=== PATIENT | female | born 1975 | race Caucasian/White ===

== ENCOUNTER 2022-09-03 18:07 | Emergency (ER) | payer OTHER, BC ==
--- OUTSIDE RECORDS SUMMARY | 2022-09-03 18:18 | XMS REPORT | Continuity of Care Document ---
:1975 Author Organization [facility] t Address [address] [place] [address] Care Team Providers Name Role Phone Fabián JIMENEZ, Sushma Primary Care Physician Viki Upton Attending Clinician MARTIN CARTER Attending Clinician Unavailable Yi JIMENEZ, Ramona Yarbrough Attending Clinician Sushma Lockwood MD Attending Clinician Payers Payer Name Policy Type Policy Number Effective Date Expiration Date S ource Problems Condition Condition Condition Status Onset Resolution Last Treating Co mments Source Name Details Category Date Date Treatment Clinician Date Depression Depression Disease Active 2020-11 M ethodi with with 2-14 st anxiety anxiety 00:00: Hospita 00 l Fibroadeno Fibroadeno Disease Active 2020-11 Overview : Methodi ma of ma of 2-[address] right right 00:00: g of this Hospita breast breast 00 note l might be different from the original. 11/2019 BX HLD HLD Disease Active 2020-11 Methodi (hyperlipi (hyperlipi 2-14 st demia) demia) 00:00: Hospita 00 l Gastrointe Gastrointe Disease Active 2020-11 M ethodi stinal stinal 2-14 st food food 00:00: Hospita sensitivit sensitivit 00 l y y IBS IBS Disease Active 2020-11 Method[facility] (irritable (irritable 2-14 st bowel bowel 00:00: Hospita syndrome) syndrome) 00 l Intermitte Intermitte Disease Active 2021-1 Overview : Methodi nt nt 2-[address] diarrhea diarrhea 00:00: g of this Hos viv 00 note l might be different from the original. After cholecyst ectomy Migraine Migraine Disease Active Overview: Me thodi 06-[address] 00:00: g of this Hospita 00 note l might be different from the original. c/o migraine headache , Takes Topiramat e Has occasiona l headaches despite taking topamax regularly Symptoms worsen When environme nt is noisy and she is stressedL ast Assessmen t & Plan: Formattin g of this note might be different from the original. Headaches are worsening . Recommend to see Neurology for worsening HeadahesA dvised to keep a headache diary.Cou nseled regarding lifestyle modificat ions.Medi cation changes per orders.Us e Migraine Excedrin at headache onset Allergies, Adverse Reactions, Alerts This patient has no known allergies or adverse reactions. Family History Family Member Diagnosis Comments Start Date Stop Date Source Natural brother No Known Problems [facility] Natural father Depression [facility] Maternal grandfather Stroke Meth [facility] mother [facility] Social History Social Habit Start Date Stop Date Quantity Comments Source Alcohol intake 2022-07-27 2022-07-27 Current Taoism 00:00:00 00:00:00 non-drinker of Hospital alcohol (finding) Tobacco use and 2022-05-17 2022-05-17 Smokeless tobacco [facility] exposure 00:00:00 00:00:00 non-user Hospital Sex Ass[birth year] At [birth year] Taoism 00:00:00 00:00:00 Hospital Smoking Status Start Date Stop Date Source Never smoked tobacco [facility] Medications Ordered Filled Start Stop Current Ordering Indication Dosage Frequency Signature Comments Components Source Medication Medication Date Date Medication? Clinician (SIG) Name Name NON Yes Otto [facility] FORMULARY 6-[address] 09:52: Beta Hospita 32 PlusDigest l Forte 2 dailyAshwa gandha complex 4 dailyCatap elissa G 4 dailyBio DK Mulsion 5 dailyBio C Plus 1000 3 dailyCatap elissa ACD 9 daily venlafaxine Yes [id number] 37.5mg QD Take 1 [facility] (EFFEXOR) 6-[address] 37.5 MG 00:00: (37.5 mg Hospit a tablet 00 total) by l mouth daily for 90 days. venlafaxine 2020-11- No [id number] 37.5mg QD Take 1 [facility] (EFFEXOR) 2-01 05-[address] 37.5 MG 00:00: 00:00 (37.5 mg Hospi ta tablet 00 :00 total) by l mouth daily for 90 days. aerosol 2020- No [id number] 2{each} Q.5D Inhale 2 [facility] holding 01-[address] chamber 00:00: 00:00 (two) Hospita (FLEXICHAMB 00 :00 times a l ER) spacer day. AIMOVIG 2018-11- No INJECT [facility] AUTOINJECTO 12-[address] R 140 mg/mL 00:00: 00:00 SUBCUTANEO Hospita syringe 00 :00 USLY EVERY l MONTH topiramate Yes [id number] TAKE 1 M ethodi (TOPAMAX) 5-[address] 100 MG 00:00: MOUTH Hospita tablet 00 EVERY l MORNING AND TAKE 2 TABLETS IN THE EVENING venlafaxine 2020- No [id number] 37.5mg Q.5D Take 1 [facility] (EFFEXOR) -15 11- tablet st 37.5 MG 00:00: 00:00 (37.5 mg Hospi ta tablet 00 :00 total) by l mouth 2 (two) times a day for 90 days. Immunizations Ordered Immunization Filled Immunization Date Status Commen ts Source Name Name LOGIC DEVICES COVID-19 MRNA 2021-11-19 Completed Meth odist VACCINATION 00:00:00 [facility] FLUCELVAX QUAD PF 2021-10-[address] 00:00:00 [facility] PFIZER COVID-19 MRNA 2021-02-22 Completed Meth odist VACCINATION 00:00:00 Hospital PFIZER COVID-19 MRNA 2021-01-31 Completed Meth odist VACCINATION 00:00:00 Hospital Influenza, 2019-08-18 Completed Taoism Unspecified 00:00:00 Hospital Influenza Trivalent 2017-09-08 Completed Metho dist 00:00:00 Hospital FLUZONE QUAD PF 2016-09-07 Completed Taoism 00:00:00 Hospital FLUZONE QUAD 2016-09-07 Completed [facility]ism 00:00:00 Hospital Influenza, 2015-08-26 Completed Taoism Unspecified 00:00:00 Hospital Influenza, 2014-09-03 Completed Taoism Unspecified 00:00:00 Hospital Influenza Trivalent 2011-06-18 Completed Metho dist 00:00:00 Hospital Vital Signs Vital Name Observation Time Observation Value Comments Source Body temperature 2022-05-01 14:50:[address] [facility] Body height 2022-05-01 14:50:00 165.1 cm [facility] Body weight 2022-05-01 14:50:00 70.308 kg [facility] BMI 2022-05-01 14:50:00 25.79 kg/m2 [facility] Systolic blood 2021-10-31 21:14:00 113 mm[Hg] [facility] pressure Diastolic blood 2021-10-31 21:14:00 70 mm[Hg] [facility] pressure Heart rate 2021-10-31 21:14:00 67 /min [facility] Respiratory rate 2021-10-31 21:14:00 16 /min [facility] Oxygen saturation in 2021-10-31 21:14:00 96 /min [facility] Arterial blood by Pulse oximetry Procedures Procedure Date / Time Performing Clinician Source Performed XR ANKLE 3+ VW LEFT 2022-06-21 13:56:01 Viki Sevilla [facility] XR ANKLE 3+ VW LEFT 2022-05-17 14:17:48 Martin Carter [facility] MAMMO BREAST SCREEN 2022-05-17 13:57:49 [facility] TOMOSYNTHESIS BILATERAL XR ANKLE 3+ VW LEFT 2022-05-04 16:27:04 [facility] Plan of Care Planned Activity Planned Date Details Comments Source Future Scheduled 2022-08-15 COVID-19 VACCINE (4 - [facility] Test 09:45:02 Booster for Pfizer series) [code = COVID-19 VACCINE (4 - Booster for Pfizer series)] Future Scheduled 2022-08-15 INFLUENZA VACCINE Method [facility] Test 09:45:02 [code = INFLUENZA VACCINE] Future Scheduled 2022-08-15 Screening for [facility] Test 09:45:02 malignant neoplasm of cervix (procedure) [code = 955169120] Future Scheduled 2022-08-15 BREAST CANCER [facility] Test 09:45:02 SCREENING [code = BREAST CANCER SCREENING] Future Scheduled 2022-08-15 HEPATITIS B VACCINES Met [facility] Test 09:45:02 (1 of 3 - 3-dose series) [code = HEPATITIS B VACCINES (1 of 3 - 3-dose series)] Future Scheduled 2022-08-15 Hepatitis C screening [facility] Test 09:45:02 (procedure) [code = 143535927] Future Scheduled 2022-08-15 COLONOSCOPY SCREENING [facility] Test 09:45:02 [code = COLONOSCOPY SCREENING] Encounters Start End Encounter Admission Attending Care Care Encounter Source Date/Time Date/Time Type Type Clinicians Facility Department ID 2022-07-26 2022-07-26 Office Roel 1.2.840.1 [id number] Methodi 15:00:00 15:24:45 Visit Viki 08585.1.1 510 s t 3.430.2.7 Hospit a .3.750378 l .8 2022-07-26 2022-07-26 Outpatient [facility] [id number] [place] 00:00:00 00:00:[address] 2022-07-26 2022-07-26 Outpatient SCOUT [facility] [id number] [place] 00:00:00 00:00:00 MARTIN [address] 2022-07-26 2022-07-26 Travel 1.2.840.1 1.2.786.614 [id number] Methodi 00:00:00 00:00:[address] 3.430.2.7 0.2.7.3.698 Ho spita .3.024472 084.8 l .8 2022-06-21 2022-06-21 Office Roel 1.2.840.1 [id number] Methodi 09:00:00 09:35:36 Visit Viki 81812.1.1 581 s t 3.430.2.7 Hospit a .3.017528 l .8 2022-06-21 2022-06-21 Outpatient [facility] [id number] [place] 00:00:00 00:00:[address] 2022-06-21 2022-06-21 Travel 1.2.840.1 1.2.933.521 [id number] Methodi 00:00:00 00:00:[address] 3.430.2.7 0.2.7.3.698 Ho spita .3.671318 084.8 l .8 2022-06-21 2022-06-21 Outpatient [facility] [id number] [place] 00:00:00 00:00:[address] 2022-05-20 2022-05-20 [facility], 1.2.840.1 [id number] [id number] Methodi 16:28:06 23:59:00 Encounter Ramona 42668.1.[address] [place] 3.430.2.7 Hospit a .3.144534 l .8 2022-05-20 2022-05-20 [facility], 1.2.840.1 [id number] 2099 [id number] Methodi 16:27:55 16:27:55 Encounter Ramona 58578.1.[address] [place] 3.430.2.7 Hospit a .3.608872 l .8 2022-05-20 2022-05-20 [facility], 1.2.840.1 [id number] 2099 [id number] Methodi 16:27:16 16:27:16 Encounter Ramona 85664.1.[address] [facility] 3.430.2.7 Hospit a .3.913177 l .8 2022-05-20 2022-05-20 [facility], 1.2.840.1 [id number] 2099 [id number] Methodi 16:27:15 16:27:15 Encounter Ramona [address]684.1.[address] [place] 3.430.2.7 Hospit a .3.119616 l .8 2022-05-20 2022-05-20 [facility], 1.2.840.1 [id number] 2099 [id number] Methodi 16:26:16 16:26:16 Encounter Ramona [address]1952.1.[address] [place] 3.430.2.7 Hospit a .3.176710 l .8 2022-05-20 2022-05-20 Outpatient YI, [facility] [id number] [place] 00:00:00 00:00:00 RAMONA [address] 2022-05-20 2022-05-20 Orders Yi, 1.2.840.1 [id number] Methodi 00:00:00 00:00:00 Only Ramona 11616.1.[address] [place] 3.430.2.7 Hospit a .3.338325 l .8 2022-05-20 2022-05-20 Outpatient YI, [facility] [id number] [place] 00:00:00 00:00:00 RAMONA 301 Method i 2022-05-20 2022-05-20 Outpatient YI [facility] [id number] [place] 00:00:00 00:00:00 RAMONA [address] 2022-05-20 2022-05-20 Outpatient YI, [facility] [id number] [place] 00:00:00 00:00:00 RAMONA 307 Method i 2022-05-20 2022-05-20 Outpatient YI, [facility] [id number] [place] 00:00:00 00:00:00 RAMONA 315 Method i 2022-05-17 2022-05-17 Office Sushma Lockwood 1.2.840.1 [id number] Methodi 10:30:00 13:05:30 Visit Martin Carter 27906.1.[address] 3.430.2.7 Hospit a .3.473954 l .8 2022-05-17 2022-05-17 Outpatient [facility] [id number] [place] 00:00:00 00:00:00 SUSHMA [address] 2022-05-17 2022-05-17 Outpatient [facility] [id number] [place] 00:00:00 00:00:00 BRANKA [address] 2022-05-17 2022-05-17 Outpatient SCOUT, [facility] [id number] [place] 00:00:00 00:00:00 MARTIN [address]ujano [facility] 2022-05-17 2022-05-17 Travel 1.2.840.1 1.2.083.224 [id number] [id number] Methodi 00:00:00 00:00:[address] 3.430.2.7 0.2.7.3.698 Ho spita .3.350521 084.8 l .8 2022-05-04 2022-05-04 Outpatient [facility], [facility] [id number] [place] 00:00:00 00:00:[address] SUSHMA [address] 2022-05-02 2022-05-02 Travel 1.2.840.1 1.2.517.930 [id number] Methodi 00:00:00 00:00:[address] 3.430.2.7 0.2.7.3.698 Ho spita .3.865584 084.8 l .8 2022-05-01 [facility] [id number] Method[facility] 10:00:00 10:19:02 ne Branka 12713.1.[address] 3.430.2.7 Hospit a .3.779741 l .8 2022-05-01 2022-05-01 Outpatient [facility], [facility] [id number] [place] 00:00:00 00:00:00 BRANKA [address] 2022-04-30 2022-04-30 Travel 1.2.840.1 1.2.764.120 [id number] Method[facility] 00:00:00 00:00:[address] 3.430.2.7 0.2.7.3.698 Ho spita .3.005031 084.8 l .8 2022-04-30 2022-04-30 Telephone [facility], 1.2.840.1 [id number] Methodi 00:00:00 00:00:[address] 3.430.2.7 Hospit a .3.239713 l .8 2021-10-31 2021-10-31 Office Eric[place], 1.2.840.1 [id number] Method[facility] 15:00:00 15:57:33 Visit Branka 07202.1.[address] 3.430.2.7 Hospit a .3.072785 l .8 2021-10-31 2021-10-31 [facility] [id number] [place] 00:00:00 00:00:00 BRANKA [address] 2021-10-31 2021-10-31 Travel 1.2.840.1 1.2.259.365 [id number] Method[facility] 00:00:00 00:00:[address] 3.430.2.7 0.2.7.3.698 Ho spita .3.801098 084.8 l .8 2020-08-11 2020-08-11 Outpatient [facility] [id number] [place] 00:00:00 00:00:00 RAMONA [address] 2020-02-23 2020-02-23 Outpatient [facility] [id number] [place] 00:00:00 00:00:00 RAMONA [address] 2020-01-28 2020-01-28 Outpatient [facility] [id number] [place] 00:00:00 00:00:00 RAMONA [address] 2020-01-28 2020-01-28 Outpatient [facility] [id number] [place] 00:00:00 00:00:00 RAMONA [address] Results This patient has no known results.
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
[2022-09-03 20:14] VITALS: O2SAT 98
[2022-09-03 20:15] VITALS: BP 111/75; TEMP 97.9
== END 2022-09-03 19:59 | disposition home or self-care (01) ==
LOC: ER 18:07
DX: R07.1 Chest pain on breathing (principal); R10.9 Unspecified abdominal pain; V43.52XA Car driver injured in collision with other type car in traffic accident, initial encounter; W22.11XA Striking against or struck by driver side automobile airbag, initial encounter; Y93.89 Activity, other specified; Y92.410 Unspecified street and highway as the place of occurrence of the external cause
CPT/HCPCS: 70450; 71250; 72125; 99283